=== PATIENT | female | born 1965 | race Caucasian/White ===

== ENCOUNTER 2019-04-08 08:50 | Emergency (ER) | payer SELFPAY ==
[2019-04-08 09:13] VITALS: BP 131/79
--- NOTE | 2019-04-08 09:19 | UC ---
General HPI - HPI Summary HPI Summary: 53-year-old female who is traveling from [place] and she has run out of her duloxetine and carvedilol. Patient states she tried to get a refill from her primary care provider prior to leaving prior to her trip and the primary care provider will be leaving the practice prior to her return and she was unable to get in before her trip. - History of Current Complaint Chief Complaint: UCMedRefill Stated Complaint: RX FILL Time Seen by Provider: 04/08/19 08:54 Hx Obtained From: Patient Onset/Duration: Other - No complaints Pain Intensity: 0 - Allergy/Home Medications Allergies/Adverse Reactions: Allergies Allergy/AdvReac Type Severity Reaction Status Date / Time No Known Allergies Allergy Verified 04/08/19 09:00 Home Medications: Home Medications Carvedilol TAB* [Coreg TAB*] 6.25 mg PO BID 04/08/19 [History Confirmed 04/08/19 ] Cholecalciferol (Vitamin D3) [Vitamin D3] 4,000 unit PO DAILY 04/08/19 [History Confirmed 04/08/19] DULoxetine DR CAP* [Cymbalta CAP*] 30 mg PO BEDTIME 04/08/19 [History Confirmed 04/08/19] DULoxetine DR CAP* [Cymbalta CAP*] 60 mg PO DAILY 04/08/19 [History Confirmed ] Docusate CAP* [Colace Cap*] 250 mg PO DAILY 04/08/19 [History Confirmed 04/08/19 ] Hydrocodone/Acetaminophen [Hydrocodone Bitartrate/AC] 1 tab PO Q4H PRN 04/08/19 [History Confirmed 04/08/19] Losartan TAB* [Cozaar TAB*] 100 mg PO DAILY 04/08/19 [History Confirmed 04/08/19 ] Multivit-Min/Folic Acid/Vit K1 [Multi For Her 50 Plus Softgel] 1 each PO DAILY 04/08/19 [History Confirmed 04/08/19] Omeprazole 20 mg PO DAILY 04/08/19 [History Confirmed 04/08/19] PMH/Surg Hx/FS Hx/Imm Hx Previously Healthy: Yes Endocrine History: Diabetes Cardiovascular History: Hypertension - Surgical History Surgical History: Yes Surgery Procedure, Year, and Place: T&A. carpal tunnel R hand. R wrist. achilles tendon/ heel spur R foot. bariatric. kidney surgery. tubal ligation. oral. back injections - Family History Known Family History: Positive: Non-Contributory - Social History Alcohol Use: Rare Substance Use Type: Prescribed Substance Use Comment - Amount & Last Used: [place] Smoking Status (MU): Former Smoker When Did the Patient Quit Smoking/Using Tobacco: 2006 Review of Systems All Other Systems Reviewed And Are Negative: Yes Is Patient Immunocompromised?: No - Comments Additional Review of Systems Comments: Patient has no complaints today. Physical Exam Triage Information Reviewed: Yes Appearance: Well-Appearing, No Pain Distress, Well-Nourished Vital Signs: Initial Vital Signs Temp 97.8 F 04/08/19 09:07 Pulse 72 04/08/19 09:07 Resp 16 04/08/19 09:07 BP 131/79 04/08/19 09:07 Pulse Ox 100 04/08/19 09:07 Vital Signs Reviewed: Yes Respiratory: Positive: Lungs clear, Normal breath sounds, No respiratory distress, No accessory muscle use Cardiovascular: Positive: RRR, No Murmur, Pulses Normal, Brisk Capillary Refill Musculoskeletal Exam: Normal Musculoskeletal: Positive: No Edema Neurological Exam: Normal Psychological Exam: Normal Skin Exam: Normal Course/Dx - Course Course Of Treatment: Medication refill given to the patient with a follow-up at [facility] if she has any further concerns. - Diagnoses Provider Diagnosis: Medication refill Discharge - Sign-Out/Discharge Documenting (check all that apply): Patient Departure All imaging exams completed and their final reports reviewed: No Studies - Discharge Plan Condition: Good Disposition: HOME Prescriptions: Carvedilol TAB* [Coreg TAB*] 6.25 mg PO DAILY 30 Days #30 tab Duloxetine HCl [Cymbalta] 60 mg PO DAILY 30 Days #90 capsule. Referrals: No Primary Care Phys,NOPCP [Primary Care Provider] - [facility] [Outside] Additional Instructions: Follow-up with your primary care provider for further refills. If you need to seek healthcare in the meantime you can follow-up with the [facility] in [place]. - Billing Disposition and Condition Condition: GOOD Disposition: Home
== END 2019-04-08 09:29 | disposition home or self-care (01) ==
LOC: UCCORT 08:50
DX: I10 Essential (primary) hypertension (principal); Z76.0 Encounter for issue of repeat prescription; E11.9 Type 2 diabetes mellitus without complications; Z87.891 Personal history of nicotine dependence
CPT/HCPCS: 99202; G0463